=== PATIENT | male | born 1935 | race Caucasian/White ===

== ENCOUNTER → 2016-09-13 | Outpatient (CLI) | payer MEDICARE, BC ==
[2016-09-13 16:57] LABS: HEMATOCRIT 45.3 % (37.0-53.0); HEMOGLOBIN 15.1 g/dL (11.0-16.0); MCH 34.2 pg (27.0-34.0); MCHC 33.3 gm/dL (32.0-36.5); MCV 102.7 fl (83.0-98.0); MPV 9.8 fl (9.4-12.4); PLATELET COUNT 207 K/uL (150-450); RBC 4.41 M/uL (3.50-5.50); RDW-CV 12.8 % (11.9-14.6); WBC 4.5 K/uL (4.0-11.0)
[2016-09-13 17:14] LABS: ALBUMIN 3.7 gm/dL (3.5-5.0); ALK PHOS 59 IU/L (33-138); ALT 24 IU/L (12-78); ANION GAP 11.4 (10.0-19.0); AST 28 IU/L (10-40); BLOOD UREA NITROGEN 16 mg/dL (6-24); CALCIUM 9.2 mg/dL (8.5-10.5); CHLORIDE 102 mMol/L (96-110); CO2 27 mMol/L (22-32); CREATININE 0.8 mg/dL (0.6-1.3); ESTIMATED GFR (MDRD EQUATION) > 60; POTASSIUM 4.4 mMol/L (3.7-5.1); SODIUM 136 mMol/L (135-145); TOTAL BILIRUBIN 0.8 mg/dL (0.0-1.5)
[2016-09-13 18:03] LABS: ABSOLUTE NEUTROPHIL CT (ANC) 3.8 K/uL (1.4-9.0); BANDED NEUTROPHIL # 0.4 K/uL (0.0-0.1); BANDED NEUTROPHILS % 8 %; LYMPHOCYTE # 0.4 K/uL (0.8-4.0); LYMPHOCYTE % 8 %; MONOCYTE # 0.3 K/uL (0.0-1.0); SEGMENTED NEUTROPHIL # 3.4 K/uL (1.4-9.0); SEGMENTED NEUTROPHIL % 76 %
== END | disposition disaster alternative care site (69) ==
LOC: LNHI 16:41
PROVIDERS: Internal Medicine Cardiovascular Disease
DX: I48.91 Unspecified atrial fibrillation (principal); Z95.2 Presence of prosthetic heart valve; E78.5 Hyperlipidemia, unspecified